=== PATIENT | female | born 1995 | race American Indian/Alaskan Native ===

== ENCOUNTER 2021-08-27 12:28 | Outpatient (CLI) | payer MEDICAID ==
[2021-08-27 12:47] VITALS: BP 124/65
[2021-08-27] MEDS ORDERED: LACTATED RINGERS 1,000 ML ONE (13:03)
--- NOTE | 2021-08-27 17:48 | Ultrasound Report ---
ULTRASOUND OBSTETRIC LIMITED ULTRASOUND BIOPHYSICAL PROFILE INDICATION / CLINICAL INFORMATION: Evaluate well-being. COMPARISON: None available. FINDINGS: BREATHING MOVEMENT = 2 GROSS BODY MOVEMENT = 2 TONE = 2 QUALITATIVE AMNIOTIC FLUID VOLUME = 2 TOTAL BIOPHYSICAL SCORE = 8/8 AMNIOTIC FLUID INDEX (cm) = 12.5 PRESENTATION: Cephalic. HEART RATE (beats per minute): 133 ADDITIONAL FINDINGS: None. IMPRESSION: 1. Biophysical Score = 8/8 2. No significant abnormalities. Signer Name: Shaq Olmedo MD Signed: 08/27/2021 5:43 PM Workstation Name: [id number]
--- NOTE | 2021-08-30 06:54 | Ultrasound Report ---
OB ultrasound INDICATION: well-being FINDINGS: Intrauterine . Cephalic uterus. Biophysical profile 8 out of 8. IMPRESSION: Biophysical profile 8 out of 8 Signer Name: Danny Ward MD Signed: 08/30/2021 6:49 AM Workstation Name: [id number]
== END 2021-08-27 14:20 | disposition home or self-care (01) ==
LOC: TRG 12:28 → APU 12:29 → TRG 14:20
PROVIDERS: ATTEND Obstetrics & Gynecology
DX: Z34.93 Encounter for supervision of normal pregnancy, unspecified, third trimester (principal); Z3A.39 39 weeks gestation of pregnancy
CPT/HCPCS: 76815; 76819

== ENCOUNTER 2021-08-28 06:35 | Inpatient (IN) | payer MEDICAID ==
[2021-08-28] MEDS ORDERED: ACETAMINOPHEN 325 MG TAB PO PRN ×2 (07:37→18:02)
[2021-08-28] MEDS ORDERED: METHYLERGONOVINE MALEATE 0.2 MG/ML VIAL IM PRN (07:37)
[2021-08-28] MEDS ORDERED: miSOPROStol 200 MCG TAB PR PRN (07:37)
[2021-08-28] MEDS ORDERED: TERBUTALINE 1 MG/1 ML INJ SUB-Q PRN (07:37)
[2021-08-28] MEDS ORDERED: MINERAL OIL 30 ML ORAL LIQD PO PRN (07:37)
[2021-08-28] MEDS ORDERED: ePHEDrine SULFATE 50 MG/1 ML INJ IV PRN ×2 (07:37→14:09)
[2021-08-28] MEDS ORDERED: fentaNYL 100 MCG/2 ML INJ IV PRN (07:37)
[2021-08-28] MEDS ORDERED: LOPERAMIDE 2 MG CAP PO PRN (07:37)
[2021-08-28] MEDS ORDERED: OXYTOCIN 10 UNIT/1 ML INJ IM PRN (07:37)
[2021-08-28] MEDS ORDERED: CARBOPROST TROMETHAMINE 250 MCG/1 ML INJ IM PRN (07:37)
[2021-08-28] MEDS ORDERED: LACTATED RINGERS 1,000 ML IV SCH ×2 (07:45→08:00)
--- NOTE | 2021-08-28 07:46 | History and Physical Report ---
History of Present Illness Date of examination: 08/28/21 Date of admission: 08/28/2021 Chief complaint: Contractions History of present illness: 26 year old presents to L&D with contractions. Patient denies vaginal bleeding or leaking of fluid. Patient reports active movement. Patient receives care at [facility] and records are available. LMP 11/23/20. EDC 08/30/21. significant for the following: low lying placenta (resolved), cervical polyp, vitamin D deficiency. labs are as follows: O+, antibody screen negative, rubella immune, HIV negative, hepatitis B surface antigen negative, RPR nonreactive, pap smear negative, chlamydia negative, gonorrhea negative, trichomonas negative, GBS negative, 1 hour sugar test 103. Past History Past Medical History: other (vitamin D deficiency) Past Surgical History: no surgical history [facility] History: denies: abnormal PAP smear, chlamydia, gonorrhea, hepatitis B, hepatitis C, herpes, HIV, syphilis, trichomonas Family/Genetic History: diabetes, cancer Social history: no significant social history, lives with family, full code. denies: smoking, alcohol abuse, IV drug use - Obstetrical History Expected Date of Delivery: 08/30/21 Actual Gestation: 39 Week(s) 5 Day(s) : 1 Para: 0 Hx # Term Pregnancies: 0 Number of Pregnancies: 0 Spontaneous Abortions: 0 Induced : 0 Number of Living Children: 0 Medications and Allergies Allergies Allergy/AdvReac Type Severity Reaction Status Date / Time No Known Allergies Allergy Verified 08/27/21 12:41 Active Meds: Active Medications Acetaminophen (Acetaminophen 325 Mg Tab) 650 mg PO Q4H PRN PRN Reason: Pain, Mild (1-3) Butorphanol Tartrate (Butorphanol 2 Mg/1 Ml Inj) 1 mg IV Q2H PRN PRN Reason: Pain, Moderate(4-6) LABOR PAIN Carboprost Tromethamine (Carboprost Tromethamine 250 Mcg/1 Ml Inj) 250 mcg IM ONCE PRN PRN Reason: Uterine Bleeding Ephedrine Sulfate (Ephedrine Sulfate 50 Mg/1 Ml Inj) 10 mg IV Q2M PRN PRN Reason: Hypotension Fentanyl (Fentanyl 100 Mcg/2 Ml Inj) 100 mcg IV Q2H PRN PRN Reason: Pain,Severe (7-10) LABOR PAIN Lactated Ringer's (Lactated Ringers) 1,000 mls @ 150 mls/hr IV DIRECT ANUP Lactated Ringer's (Lactated Ringers) 1,000 mls @ 125 mls/hr IV DIRECT ANUP Oxytocin/Sodium Chloride (Pitocin/Ns 30 Unit/500ml) 30 units in 500 mls @ 40 mls/hr IV TITR ANUP; Protocol Lidocaine (Lidocaine (2%) 20 Mg/1 Ml Vial 20 Ml Mdv) 20 ml INFILTRATI ONCE ONE Stop: 08/28/21 07:38 Loperamide HCl (Loperamide 2 Mg Cap) 2 mg PO ONCE PRN PRN Reason: give with Hemabate Methylergonovine Maleate (Methylergonovine Maleate 0.2 Mg/Ml Vial) 0.2 mg IM ONCE PRN PRN Reason: Uterine Bleeding Mineral Oil (Mineral Oil 30 Ml Oral Liqd) 30 ml PO QHS PRN PRN Reason: Constipation Misoprostol (Misoprostol 200 Mcg Tab) 800 mcg CA ONCE PRN PRN Reason: Uterine Bleeding Oxytocin (Oxytocin 10 Unit/1 Ml Inj) 10 unit IM ONCE PRN PRN Reason: Uterine Bleeding Terbutaline Sulfate (Terbutaline 1 Mg/1 Ml Inj) 0.25 mg SUB-Q ONCE PRN PRN Reason: Hyperstimulation/Hypertonicity Review of Systems All systems: negative (contractions) - Vital Signs Vital signs: Vital Signs Pulse Pulse Ox 72 99 08/28/21 07:08 08/28/21 07:08 Temp Pulse Resp BP Pulse Ox 98.3 F 70 18 126/76 85 08/28/21 07:11 08/28/21 07:41 08/28/21 07:11 08/28/21 07:11 08/28/21 07:41 - Physical Exam Abdomen: Positive: normal appearance, soft. Negative: distention, tenderness, guarding, rigidity Genitourinary (Female): Positive: normal external genitalia, normal perenium. Negative: perineal/vulvar lesions Vagina: Positive: normal moisture Uterus: Positive: enlarged. Negative: tender Anus/Rectum: Positive: normal perianal skin Extremities: Negative: tenderness - Obstetrical FHR: category 2 Uterine Contraction Monitor Mode: External Cervical Dilatation: 3 Cervical Effacement Percentage: 90 (BBOW) station: -3 Uterine Contraction Pattern: Irregular Uterine Contraction Intensity: Mild Results All other labs normal. Assessment and Plan A: at 39 weeks, 5 days gestation. Early labor. GBS negative. Category 2 FHR tracing. P: Admit. Continuous EFM. IV hydration. Lateral positioning and oxygen per face mask. Consulted re: this patient and FHR tracing.
[2021-08-28] MEDS ORDERED: OXYTOCIN DRIP 30 UNITS/500 ML BAG IV SCH (08:00)
--- NOTE | 2021-08-28 08:38 | Ultrasound Report ---
ULTRASOUND BIOPHYSICAL PROFILE INDICATION / CLINICAL INFORMATION: Evaluate well-being COMPARISON: Limited obstetrical ultrasound, 08/27/2021 FINDINGS: BREATHING MOVEMENT = 2 GROSS BODY MOVEMENT = 2 TONE = 2 QUALITATIVE AMNIOTIC FLUID VOLUME = 2 TOTAL BIOPHYSICAL SCORE = 06/13 AMNIOTIC FLUID INDEX (cm) = 12.4 PRESENTATION: Cephalic. HEART RATE (beats per minute): 136 IMPRESSION: 1. biophysical profile = 06/13 Signer Name: Neeta Brown MD Signed: 08/28/2021 8:33 AM Workstation Name: [email or web address]
[2021-08-28] MEDS ORDERED: LIDOCAINE (2%) 20 MG/1 ML VIAL 20 ML MDV INFILTRATI ONE ×2 (09:00→15:49)
[2021-08-28 09:11] LABS: Hematocrit 37.5 % (30.3-42.9); Hemoglobin 12.4 gm/dl (10.1-14.3); Mean Corpuscular HGB Conc 33 % (30-34); Mean Corpuscular Volume 97 fl (79-97); Platelet Count 176 K/mm3 (140-440); Red Blood Count 3.85 M/mm3 (3.65-5.03); Red Cell Distribution Width 13.6 % (13.2-15.2)
[2021-08-28] MEDS ORDERED: FLU VACC QUAD 2021-22(6MOS UP)/PF 60 MCG/0.5 ML SYRINGE IM ONE (10:00)
[2021-08-28 10:38] LABS: Hepatitis C Virus Antibody Non-Reactive (NonReactive)
[2021-08-28] MEDS: BUTORPHANOL 2 MG/1 ML INJ IV PRN ×2 (11:19→13:32)
--- NOTE | 2021-08-28 12:32 | Progress Note ---
Subjective - Subjective Date of service: 08/28/21 Interval history: AOL Cervix 4cm/100%/-1 FHT [place] 1 [place]: Q1-2 minutes AROM clear Maternal/ status reassuring overall Theresa Lang MD Objective - Vital Signs Vital Signs: Vital Signs - 12hr 08/28/21 08/28/21 08/28/21 07:08 07:10 07:11 Temperature 98.3 F Pulse Rate 72 74 75 Respiratory 18 Rate Blood Pressure 126/76 Blood Pressure 126/76 [Right] O2 Sat by Pulse 99 100 Oximetry O2 Sat by Pulse Oximetry [ Anterior Bilateral Throughout] 08/28/21 08/28/21 08/28/21 07:13 07:18 07:23 Temperature Pulse Rate 83 88 72 Respiratory Rate Blood Pressure Blood Pressure [Right] O2 Sat by Pulse 100 100 100 Oximetry O2 Sat by Pulse Oximetry [ Anterior Bilateral Throughout] 08/28/21 08/28/21 08/28/21 07:28 07:33 07:38 Temperature Pulse Rate 76 73 71 Respiratory Rate Blood Pressure Blood Pressure [Right] O2 Sat by Pulse 100 100 99 Oximetry O2 Sat by Pulse Oximetry [ Anterior Bilateral Throughout] 08/28/21 08/28/21 08/28/21 07:41 07:45 07:46 Temperature Pulse Rate 70 149 H Respiratory Rate Blood Pressure Blood Pressure [Right] O2 Sat by Pulse 85 85 83 L Oximetry O2 Sat by Pulse Oximetry [ Anterior Bilateral Throughout] 08/28/21 08/28/21 08/28/21 07:52 07:58 08:04 Temperature Pulse Rate 68 57 L Respiratory Rate Blood Pressure Blood Pressure [Right] O2 Sat by Pulse 84 84 87 Oximetry O2 Sat by Pulse Oximetry [ Anterior Bilateral Throughout] 08/28/21 08/28/21 08/28/21 08:14 08:21 08:27 Temperature Pulse Rate Respiratory Rate Blood Pressure Blood Pressure [Right] O2 Sat by Pulse 80 L 85 77 L Oximetry O2 Sat by Pulse Oximetry [ Anterior Bilateral Throughout] 08/28/21 08/28/21 08/28/21 08:33 08:41 08:50 Temperature Pulse Rate 120 H Respiratory Rate Blood Pressure Blood Pressure [Right] O2 Sat by Pulse 85 94 80 L Oximetry O2 Sat by Pulse Oximetry [ Anterior Bilateral Throughout] 08/28/21 08/28/21 08/28/21 08:55 09:05 09:16 Temperature Pulse Rate 77 Respiratory Rate Blood Pressure Blood Pressure [Right] O2 Sat by Pulse 0 L 81 L Oximetry O2 Sat by Pulse 100 Oximetry [ Anterior Bilateral Throughout] 08/28/21 08/28/21 08/28/21 09:28 09:33 09:38 Temperature Pulse Rate 79 77 74 Respiratory Rate Blood Pressure Blood Pressure [Right] O2 Sat by Pulse 86 99 100 Oximetry O2 Sat by Pulse Oximetry [ Anterior Bilateral Throughout] 08/28/21 08/28/21 08/28/21 09:43 09:48 09:53 Temperature Pulse Rate 68 72 85 Respiratory Rate Blood Pressure Blood Pressure [Right] O2 Sat by Pulse 100 100 100 Oximetry O2 Sat by Pulse Oximetry [ Anterior Bilateral Throughout] 08/28/21 08/28/21 08/28/21 09:58 10:03 10:08 Temperature Pulse Rate 74 71 87 Respiratory Rate Blood Pressure Blood Pressure [Right] O2 Sat by Pulse 100 100 100 Oximetry O2 Sat by Pulse Oximetry [ Anterior Bilateral Throughout] 08/28/21 08/28/21 08/28/21 10:09 11:18 11:19 Temperature Pulse Rate 78 81 73 Respiratory Rate Blood Pressure 125/71 Blood Pressure [Right] O2 Sat by Pulse 88 98 Oximetry O2 Sat by Pulse Oximetry [ Anterior Bilateral Throughout] 08/28/21 08/28/21 08/28/21 11:24 11:29 11:34 Temperature Pulse Rate 77 77 73 Respiratory Rate Blood Pressure Blood Pressure [Right] O2 Sat by Pulse 97 96 96 Oximetry O2 Sat by Pulse Oximetry [ Anterior Bilateral Throughout] 08/28/21 08/28/21 08/28/21 11:39 11:44 11:49 Temperature Pulse Rate 72 75 73 Respiratory Rate Blood Pressure Blood Pressure [Right] O2 Sat by Pulse 97 97 95 Oximetry O2 Sat by Pulse Oximetry [ Anterior Bilateral Throughout] 08/28/21 08/28/21 08/28/21 11:54 11:59 12:04 Temperature Pulse Rate 69 73 71 Respiratory Rate Blood Pressure Blood Pressure [Right] O2 Sat by Pulse 97 97 98 Oximetry O2 Sat by Pulse Oximetry [ Anterior Bilateral Throughout] 08/28/21 08/28/21 08/28/21 12:09 12:14 12:23 Temperature Pulse Rate 70 82 80 Respiratory Rate Blood Pressure Blood Pressure [Right] O2 Sat by Pulse 97 100 99 Oximetry O2 Sat by Pulse Oximetry [ Anterior Bilateral Throughout] 08/28/21 12:28 Temperature Pulse Rate 71 Respiratory Rate Blood Pressure Blood Pressure [Right] O2 Sat by Pulse 99 Oximetry O2 Sat by Pulse Oximetry [ Anterior Bilateral Throughout] - Labs Labs: Laboratory Results - last 24 hr 08/28/21 08/28/21 08/28/21 08:50 08:50 08:50 WBC 7.1 RBC 3.85 Hgb 12.4 Hct 37.5 MCV 97 MCH 32 MCHC 33 RDW 13.6 Plt Count 176 Syphilis IgG Antibody Nonreactive Hepatitis C Antibody Non-reactive Blood Type O POSITIVE Antibody Screen Negative
[2021-08-28] MEDS ORDERED: NALOXONE 2 MG/2 ML INJ IV PRN (14:09)
--- NOTE | 2021-08-28 14:09 | Anesthesia Consultation ---
Anesthesia Consult and Med Hx Date of service: 08/28/21 - Airway Anesthetic Teeth Evaluation: Poor ROM Head & Neck: Adequate Mental/Hyoid Distance: Adequate Mallampati Class: Class II Intubation Access Assessment: Probably Good - Pulmonary Exam CTA: Yes - Cardiac Exam Cardiac Exam: RRR - Pre-Operative Health Status ASA Pre-Surgery Classification: ASA2 Proposed Anesthetic Plan: Epidural - Pulmonary Hx Smoking: No Hx Asthma: No Hx Respiratory Symptoms: No SOB: No COPD: No Home Oxygen Therapy: No Hx Pneumonia: No Hx Sleep Apnea: No - Cardiovascular System Hx Hypertension: No Hx Coronary Artery Disease: No Hx Heart Attack/AMI: No Hx Angina: No Hx Percutaneous Transluminal Coronary Angioplasty (PTCA): No Hx Cardia Arrhythmia: No Hx Pacemaker: No Hx Internal Defibrillator: No Hx Valvular Heart Disease: No Hx Heart Murmur: No Hx Peripheral Vascular Disease: No - Central Nervous System Hx Neuromuscular Disorder: No Hx Seizures: No CVA: No Hx Back Pain: Yes Hx Psychiatric Problems: No - Gastrointestinal Hx Ulcer: No Hx Gastroesophageal Reflux Disease: Yes - Endocrine Hx Renal Disease: No Hx End Stage Renal Disease: No Hx Cirrhosis: No Hx Liver Disease: No Hx Insulin Dependent Diabetes: No Hx Non-Insulin Dependent Diabetes: No Hx Thyroid Disease: No Hx Hypothyroidism: No Hx Hyperthyroidism: No - Hematic Hx Anemia: No Hx Sickle Cell Disease: No - Other Systems Hx Alcohol Use: No Hx Substance Use: No Hx Cancer: No Hx Obesity: No
[2021-08-28] MEDS ORDERED: fentaNYL-BUPIV 2 MCG/ML-0.125% 200 MCG/100 ML BAG EPIDURAL SCH (15:00)
--- NOTE | 2021-08-28 15:31 | Progress Note ---
Labor Epidural - Labor Epidural Start Time: 14:45 Stop Time: 14:52 Performed by:: MARGARITA OREILLY Procedure: Patient is requesting a laboring epidural for laboring pain. Patient IDed, H&P reviewed, all questions and concerns were answered, and consent was signed. Timeout was performed at bedside. Patient in sitting position. Sterile prep and drape was performed. [3] ml of 1% lidocaine skin wheal at L[3]- L [4]. 18- gauge Tuohy epidural needle was advanced to loss of resistance with saline technique 6cm. Negative CSF negative blood. Epidural catheter advanced to [10] centimeters. [NEGATIVE] Aspiration [NEGATIVE] test dose. Sterile dressing applied. Patient tolerated procedure.
--- NOTE | 2021-08-28 16:46 | Procedure Note ---
OB Delivery Note - Delivery Date of Delivery: 08/28/21 Surgeon: ALEXIS AMARAL Estimated blood loss: 300cc - Vaginal Delivery position: OA Intrapartum events: none Delivery induction: none Delivery augmentation: rupture of membranes, pitocin Delivery monitor: external FHT, external uterine Route of delivery: Delivery placenta: spontaneous Delivery cord: 3 umbilical vessels Episiotomy: none Delivery laceration: 1st degree Delivery repair: vicryl Anesthesia: epidural Delivery comments: Patient pushed to deliver a viable female over an intact perineum with weight 3550gms and 8/9. Position EWELINA, no nuchal cord. Spontaneous cry at delivery. Delivery of the anterior shoulder atraumatic, remainder of delivery uncomplicated. Cord clamped cut and baby handed to waiting JEIMY team. Spontaneous delivery of an intact placenta with three-vessel cord. Inspection of the perineum cervix and vagina revealed a first degree perineal laceration that was repaired with 2-0 vicryl in the usual fashion. Firm fundus, EBL 300ml. All sponge needle and instrument counts correct x2. Mom and baby stable to . Theresa Amaral MD
--- NOTE | 2021-08-28 16:58 | Post Anesthesia Evaluation ---
- Post Anesthesia Evaluation Patient Participated: Yes Airway Patent: Yes Stable Respiratory Function: Yes Nausea/Vomiting: No Temp > 96.8F: Yes Pain Manageable: Yes Adequeate Hydration: Yes Anesthesia Complications: No Block Receding Appropriately: Yes Patient on Ventilator: No
[2021-08-28] MEDS ORDERED: LANOLIN/ZINC/DIMETHICONE (LANSINOH) 7 GM TP PRN (18:02)
[2021-08-28] MEDS ORDERED: PROMETHAZINE 25 MG RECT SUPP PR PRN (18:02)
[2021-08-28] MEDS ORDERED: PROMETHAZINE 25 MG TAB PO PRN (18:02)
[2021-08-28] MEDS ORDERED: diphenhydrAMINE 25 MG CAP PO PRN (18:02)
[2021-08-28] MEDS ORDERED: WITCH HAZEL/ GLYCERIN PAD TP PRN (18:02)
[2021-08-28] MEDS ORDERED: ONDANSETRON 4 MG/2 ML INJ IV PRN (18:02)
[2021-08-28] MEDS: IBUPROFEN 600 MG TAB PO SCH (22:00)
[2021-08-29 01:54] LABS: Bilirubin,Urine NEG (Negative); Blood,Urine LG (Negative); Color,Urine Straw (Yellow); Mucus,Urine FEW /HPF; Protein,Urine <15 mg/dL mg/dL (Negative); Urobilinogen,Urine < 2.0 mg/dL (<2.0)
[2021-08-29] MEDS: MAGNESIUM HYDROXIDE (MOM) ORAL LIQD UDC PO PRN ×2 (02:20→18:38)
[2021-08-29 02:33] LABS: Amphetamine Screen,Urine PRESUMPTIVE NEGATIVE; Benzodiazepines Screen,Urine PRESUMPTIVE NEGATIVE; Cannabinoid Screen,Urine PRESUMPTIVE NEGATIVE; Cocaine Screen,Urine PRESUMPTIVE NEGATIVE; Methadone Screen,Urine PRESUMPTIVE NEGATIVE; Opiate Screen,Urine PRESUMPTIVE NEGATIVE
[2021-08-29] MEDS: IBUPROFEN 600 MG TAB PO SCH ×3 (05:47→18:09)
--- NOTE | 2021-08-29 05:55 | Progress Note ---
Subjective - Subjective Date of service: 08/29/21 Interval history: PPD#1 Mom and baby doing well PE being Fundus firm Lochia mild Plan for routine PP care DC home tomorrow Theresa Lang MD Patient reports: appetite normal, voiding normally, pain well controlled, amb ulating normally [place]: doing well Objective - Vital Signs Latest vital signs: Vital Signs Temp Pulse Resp BP BP Pulse Ox Pulse Ox 08/29/21 05:47 20 08/29/21 02:03 98.9 F 75 18 94/52 100 08/28/21 22:00 20 08/28/21 21:10 98.7 F 76 18 118/62 99 08/28/21 19:45 99 08/28/21 18:20 98 08/28/21 17:24 78 85 08/28/21 17:21 71 96 08/28/21 17:16 70 98 08/28/21 17:15 73 97/53 79 L 08/28/21 17:11 74 98 08/28/21 17:09 97.4 F L 77 85/54 08/28/21 17:06 71 99 08/28/21 17:05 73 101/60 08/28/21 17:04 76 92 08/28/21 17:01 84 98 08/28/21 16:59 60 92 08/28/21 16:56 82 98 08/28/21 16:54 83 95/54 08/28/21 16:51 78 98 08/28/21 16:49 80 91/51 08/28/21 16:46 89 97 08/28/21 16:44 84 94/52 08/28/21 16:41 81 97 08/28/21 16:36 80 99 08/28/21 16:34 77 91/52 08/28/21 16:31 84 98 08/28/21 16:29 78 94/49 08/28/21 16:26 82 92/45 97 08/28/21 16:25 83 94/49 08/28/21 16:21 80 98 08/28/21 16:20 81 107/55 08/28/21 16:16 137 H 100 08/28/21 16:11 79 100 08/28/21 16:10 105 H 93 08/28/21 16:06 102 H 100 08/28/21 16:01 119 H 100 08/28/21 15:59 67 85 08/28/21 15:56 87 98 08/28/21 15:51 82 97 08/28/21 15:46 83 98 08/28/21 15:41 84 98 08/28/21 15:38 77 91/55 08/28/21 15:36 82 98 08/28/21 15:31 78 97 08/28/21 15:26 80 98 08/28/21 15:24 81 96/55 08/28/21 15:21 78 99 08/28/21 15:16 73 99 08/28/21 15:11 73 99 08/28/21 15:06 82 99 08/28/21 15:04 76 112/58 08/28/21 15:01 73 98 08/28/21 14:59 88 110/57 08/28/21 14:56 89 119/74 98 08/28/21 14:51 86 125/68 100 08/28/21 14:46 79 110/64 99 08/28/21 14:41 79 98 08/28/21 14:39 85 128/73 08/28/21 14:36 81 98 08/28/21 14:34 71 123/73 08/28/21 14:31 81 98 08/28/21 14:30 92 H 93 08/28/21 14:26 85 98 08/28/21 14:21 81 98 08/28/21 14:16 70 97 08/28/21 14:11 81 97 08/28/21 14:06 96 H 97 08/28/21 14:01 76 98 08/28/21 13:58 65 84 08/28/21 13:56 47 L 84 08/28/21 13:51 46 L 08/28/21 13:49 91 H 98 08/28/21 13:44 78 99 08/28/21 13:39 77 98 08/28/21 13:34 73 99 08/28/21 13:29 79 98 08/28/21 13:24 75 98 08/28/21 13:19 95 H 97 08/28/21 13:14 86 99 08/28/21 13:09 76 98 08/28/21 13:04 89 87 08/28/21 12:58 77 96 08/28/21 12:53 76 97 08/28/21 12:48 68 99 10/23/21 12:43 82 98 08/28/21 12:38 74 98 08/28/21 12:33 69 98 08/28/21 12:28 71 99 08/28/21 12:23 80 99 08/28/21 12:14 82 100 08/28/21 12:09 70 97 08/28/21 12:04 71 98 08/28/21 11:59 73 97 08/28/21 11:54 69 97 08/28/21 11:49 73 95 08/28/21 11:44 75 97 08/28/21 11:39 72 97 08/28/21 11:34 73 96 08/28/21 11:29 77 96 08/28/21 11:24 77 97 08/28/21 11:19 73 98 08/28/21 11:18 81 125/71 08/28/21 10:09 78 88 08/28/21 10:08 87 100 08/28/21 10:03 71 100 08/28/21 09:58 74 100 08/28/21 09:53 85 100 08/28/21 09:48 72 100 08/28/21 09:43 68 100 08/28/21 09:38 74 100 08/28/21 09:33 77 99 08/28/21 09:28 79 86 08/28/21 09:16 100 08/28/21 09:05 81 L 08/28/21 08:55 77 0 L 08/28/21 08:50 80 L 08/28/21 08:41 120 H 94 08/28/21 08:33 85 08/28/21 08:27 77 L 08/28/21 08:21 85 08/28/21 08:14 80 L 08/28/21 08:04 57 L 87 08/28/21 07:58 84 08/28/21 07:52 68 84 08/28/21 07:46 83 L 08/28/21 07:45 149 H 85 08/28/21 07:41 70 85 08/28/21 07:38 71 99 08/28/21 07:33 73 100 08/28/21 07:28 76 100 08/28/21 07:23 72 100 08/28/21 07:18 88 100 08/28/21 07:13 83 100 08/28/21 07:11 98.3 F 75 18 126/76 100 08/28/21 07:10 74 126/76 08/28/21 07:08 72 99 Intake and Output 08/28/21 08/28/21 08/29/21 15:59 23:59 07:59 Intake Total 240 240 Output Total 250 1200 300 Balance -250 -960 -60 Intake: Oral 240 240 Output: Urine 250 1200 300 Indwelling Catheter 250 300 Uretheral ([place]) 300 Void 600 300 Other: Total, Intake Amount 240 240 Total, Output Amount 250 300 300 # Voids Indwelling Catheter 1 1 Void 1 1 Estimated Blood Loss 300 - Exam Breasts: Present: deferred Cardiovascular: Present: Regular rate Lungs: Present: Clear to auscultation Abdomen: Present: normal appearance, soft, normal bowel sounds Uterus: Present: fundal height below umbilicus Extremities: Present: normal Deep Tendon Reflex Grade: Normal but brisk +3 - Labs Labs: Abnormal lab results 08/28/21 Range/Units Unknown Urine WBC (Auto) 72.0 H (0.0-6.0) /HPF
--- NOTE | 2021-08-29 05:57 | Discharge Summary ---
Providers - Providers Date of Admission: 08/28/21 09:05 Date of discharge: 08/30/21 Attending physician: ALEXIS AMARAL MD Primary care physician: ALEXIS AMARAL MD Hospitalization Reason for admission: active labor Delivery: Episiotomy: none Laceration: 1st degree Other procedures: none complications: none Discharge diagnosis: IUP at term delivered Condition at discharge: Stable Disposition: 01 HOME / SELF CARE / HOMELESS - Discharge Diagnoses (1) (spontaneous vaginal delivery) Status: Acute Plan - Discharge Medications Prescriptions: Ibuprofen [Motrin 600 MG tab] 600 mg PO Q6HR #60 tablet - Provider Discharge Summary Activity: no sex for 6 weeks Diet: routine Additional instructions: [] Smoking cessation referral if applicable(refer to patient education folder for contact #) [] Refer to [facility] Booklet Call your doctor immediately for: * Fever > 100.5 * Heavy vaginal bleeding ( >1 pad per hour) * Severe persistent headache * Shortness of breath * Reddened, hot, painful area to leg or breast * Drainage or odor from incision. * Keep incision clean and dry at all times and follow doctor's instructions regarding bathing/showering - Follow up plan Follow up: ALEXIS AMARAL MD [Primary Care Provider] - 6 Weeks
[2021-08-29 08:03] LABS: Hematocrit 32.9 % (30.3-42.9)
[2021-08-29] MEDS: HYDROcodone/ACETAMINOPHEN 5-325 MG TAB PO PRN ×2 (09:04→20:00)
[2021-08-30] MEDS: HYDROcodone/ACETAMINOPHEN 5-325 MG TAB PO PRN (04:00)
[2021-08-30] MEDS: IBUPROFEN 600 MG TAB PO SCH ×2 (10:26)
[2021-08-30 13:21] VITALS: BP 109/58
== END 2021-08-30 13:35 | disposition home or self-care (01) | DRG 775 ==
LOC: TRG 06:35 → APU 06:45 → TRG 07:37 → APU 09:05 → LD 10:28 → OB 18:13
PROVIDERS: ADMIT Obstetrics & Gynecology; ATTEND Obstetrics & Gynecology
PROC: 10E0XZZ Delivery of Products of Conception, External Approach (ICD-10-PCS; principal; 2021-08-28)
PROC: 10907ZC Drainage of Amniotic Fluid, Therapeutic from Products of Conception, Via Natural or Artificial Opening (ICD-10-PCS; 2021-08-28)
PROC: 3E0R3BZ Introduction of Anesthetic Agent into Spinal Canal, Percutaneous Approach (ICD-10-PCS; 2021-08-28)
PROC: 00HU33Z Insertion of Infusion Device into Spinal Canal, Percutaneous Approach (ICD-10-PCS; 2021-08-28)
PROC: 0HQ9XZZ Repair Perineum Skin, External Approach (ICD-10-PCS; 2021-08-28)
DX: O99.62 Diseases of the digestive system complicating childbirth (principal); O70.0 First degree perineal laceration during delivery; Z3A.39 39 weeks gestation of pregnancy; Z37.0 Single live birth; Z20.822 Contact with and (suspected) exposure to COVID-19; K21.9 Gastro-esophageal reflux disease without esophagitis
CPT/HCPCS: 36415; 76815; 76819; 80307; 81001; 85014; 85018; 85027; 86592; 86803; 86850; 86900; 86901; 87086; 96360; 96374; G0378; J0595; J7120; U0003